=== PATIENT | male | born 1970 | race American Indian/Alaskan Native ===

== ENCOUNTER 2018-09-30 15:51 | Emergency (ER) | payer OTHER ==
[2018-09-30 15:58] VITALS: BP 131/74
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
== END 2018-09-30 16:44 | disposition home or self-care (01) ==
LOC: DL.ED 15:51
DX: S93.401A Sprain of unspecified ligament of right ankle, initial encounter (principal); F17.210 Nicotine dependence, cigarettes, uncomplicated; X50.9XXA Other and unspecified overexertion or strenuous movements or postures, initial encounter; Y93.39 Activity, other involving climbing, rappelling and jumping off
CPT/HCPCS: 73610-RT; 99283-25